=== PATIENT | male | born 1985 | race Caucasian/White ===

== ENCOUNTER 2023-12-06 15:37 | Observation (INO) ==
[2023-12-06 16:56] LABS: Hematocrit (blood only) 46.7 % (42.0-52.0); Hemoglobin 15.5 g/dl (14.0-18.0); Mean Corpuscular Hemoglobin 30.2 pg (25.0-34.0); Mean Corpuscular Hgb Conc 33.2 g/dL (32.0-36.0); Mean Corpuscular Volume 90.9 fL (80.0-100.0); Platelet Count 330 K/uL (130-400); RDW Coefficient of Variation 13.3 % (11.5-14.5); RDW Standard Deviation 44.5 fL (36.4-46.3); Red Blood Count 5.14 M/uL (4.70-6.10); White Blood Count 6.48 K/ul (4.8-10.8)
[2023-12-06 17:01] LABS: iSTAT Creatinine 0.7 mg/dl (0.6-1.3); iSTAT Ionized Calcium 1.22 mmol/l (1.12-1.32); iSTAT Potassium 3.7 mmol/L (3.3-5.0)
--- NOTE | 2023-12-06 17:07 | XRay Report ---
XR chest 1V not portable CLINICAL HISTORY: stroke alert COMPARISON STUDY: Chest radiograph November 18, 2008. FINDINGS: Lung volumes are normal. Lungs are clear. There is no pneumothorax or pleural effusion. Car diac size is normal. Mediastinal contours are normal. There is no evidence for pulmonary edema. IMPRESSION: No acute cardiopulmonary findings. ACT 112: Negative or not required by law. Electronically signed by: Davin Arroyo M.D. 12/06/2023 5:05 PM
[2023-12-06 17:14] LABS: Albumin Globulin Ratio 1.9 (0.9-2); Albumin Level 5.3 gm/dl (3.4-5.0); BUN Creatinine Ratio 9.1 (10-20); Bilirubin,Total 0.7 mg/dl (0.2-1.0); Calcium 9.9 mg/dl (8.6-10.3); Creatinine Clr Calc Pharmacy 156.2 ml/min; Est GFR (African American) 135.3 ml/min; Est GFR (Non-African American) 116.7 ml/min; Globulin 2.8 gm/dl (2.5-4.0); Magnesium 1.9 mg/dl (1.7-2.4); Potassium 3.7 mmol/L (3.5-5.1); Total Protein 8.1 gm/dl (6.0-8.3)
[2023-12-06 17:23] LABS: Partial Thromboplastin Ratio 1.1; Partial Thromboplastin Time 32 Seconds (21-31)
--- NOTE | 2023-12-06 18:10 | CT Scan Report ---
CT OF THE HEAD WITHOUT CONTRAST CLINICAL HISTORY: Neuro deficit, acute, stroke suspected COMPARISON STUDY: Head CT October 08, 2021. MRI of the brain October 29, 2021. CT DOSE: 625.8 mGy.cm TECHNIQUE: Helical axial images of the head were obtained without IV contrast. Automated exposure con trol was utilized for the study. A dose lowering technique was utilized adhering to the principles o f ALARA. FINDINGS: No acute intracranial hemorrhage, midline shift or mass effect is present. The ventricular system is unremarkable. The basal cisterns are patent. No extra-axial collections are present. There are no findings to suggest acute dural sinus thrombosis or acute territorial infarct. There is no estevan varial fracture. Right mastoid effusion is similar to prior CT. IMPRESSION: No acute intracranial findings. ACT 112: Negative or not required by law. Electronically signed by: Davin Arroyo M.D. 12/06/2023 6:09 PM
--- NOTE | 2023-12-06 20:24 | Emergency Department Note ---
Impression & Plan Visual changes ED Provider Note .NAME: FERNY RAMSAY AGE: 38 SEX: M : 1985 ARRIVES VIA: Walk-In INFORMANT: Patient, ED PROVIDER(S): Leelee Mason MD CHIEF COMPLAINT: Left eye HPI: This is a 38-year-old male presenting for left eye abnormality. Patient states that he woke up yesterday and had difficulty with his left eye. He is notes that it looked like it was "pointing outward ". He does have a picture that confirms this. He states that due to this he was having difficulty with his vision. He noted double vision. He went to sleep and noted some improvement with improving symptoms today. He went to the office, dressed who told him to come here for further rule out. At this time he notes no severe neurosymptoms but does have difficulty with moving his eye to the right when he has double vision again. ROS: See above HPI for pertinent positives & negatives. A total of 10 systems reviewed and were otherwise negative. PAST MEDICAL HISTORY: See Below PAST SURGICAL HISTORY: See Below FAMILY HISTORY: See Below SOCIAL HISTORY: See Below HOME MEDICATIONS: See Below ALLERGIES: See Below VITALS: See Below PHYSICAL EXAMINATION: General: resting comfortably in no acute distress Head: Normocephalic and atraumatic Eyes: Normal inspection, extraocular muscles intact Ear, nose, throat: Normal external exam Neck: Normal range of motion Respiratory: lungs clear to auscultation bilaterally Cardiovascular: Regular rate/rhythm, no murmur GI: soft, nontender, no guarding or rebound Extremities: nontender, moves all extremities Neuro: The patient awake and alert, appropriately conversive, no focal deficits, symmetric faces, unable to fully abduct the left eye Skin: Warm, dry, and intact MEDICAL DECISION MAKIN-year-old male presenting for left eye abnormality. Patient has subtle difficulty with medial gaze of the left eye. Concern for internuclear abdominal plegia. Otherwise no concern for meningitis -Screening head CT is negative at this time -Blood work is unrevealing of acute abnormalities -Chest Xray independently interpreted by me showing no pneumothorax, focal opacity, or pleural effusions. -Will admit for further workup with MRI Differential diagnosis: See above ER treatment provided: See below Diagnostics interpreted by me: ECG: ECG independently interpreted by me with normal sinus rhythm, rate of 62, first-degree AV block, normal QRS, normal QTc, no ST segment elevations consistent with STEMI criteria Cardiac Monitoring: An order was placed for continuous cardiac monitoring. The monitor shows a rate of 72 with sinus rhythm. Laboratory studies: As stated above and show below. Imaging studies: See below. 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 Social History Smoking Status: Never smoker Hx Alcohol Use: No Hx Substance Use: No Preferred Language: Zimbabwean Communication Ability: Effective Manager Merchandise Required: No Beliefs That Will Affect Care: None Current Living Situation: Alone Other Information That Helps Us Care for You: No Feels Safe at Home: Yes Safety Concerns: Feels Safe At This Time Assistive Devices: None Allergies Allergies Allergy/AdvReac Type Severity Reaction Status Date / Time Pertussis Vaccines Allergy Unknown Unknown Verified 11/17/23 15:57 Home Meds Home Medications Medication Instructions Recorded Confirmed Turkeytail Mushroom 1 dose PO DIRECTED 11/02/23 12/06/23 acetaminophen 500 mg tablet 1,000 mg PO Q6H PRN PAIN/FEVER 11/02/23 12/06/23 (Tylenol Extra Strength) cholecalciferol (vitamin D3) 25 25 mcg PO DAILY 11/02/23 12/06/23 mcg (1,000 unit) capsule (Vitamin D3) doxylamin 12.5 mg-PSE 10 mg-DM 20 1 packet PO Q4H PRN Cold Symptoms 11/02/23 12/06/23 mg-acetaminophen 650 mg oral pwdr pk ([place] Plus Cold-Flu) lysine 1,000 mg tablet 1,000 mg PO DAILY 11/02/23 12/06/23 Results & Data (ED) Vital Signs Vital Signs - 24 hr 12/06/23 15:55 12/06/23 19:40 12/06/23 21:46 Temperature 36.7 C Temperature Source Oral Pulse Rate 81 Pulse Rate [Right Finger] 81 73 Pulse Rhythm Regular Pulse Strength Normal Respiratory Rate 16 18 18 Respiratory Effort / Characteristics Non-Labored Spontaneous Non-Labored Non-Labored Respiratory Depth Normal Normal Normal Respiratory Pattern Regular Blood Pressure 153/94 H Blood Pressure [Right Arm] 134/88 133/85 Blood Pressure Mean 113 Blood Pressure Mean [Right Arm] 103 101 Blood Pressure Position Sitting Pulse Oximetry 99 99 99 Oxygen Delivery Method Room Air Room Air Room Air Sepsis Recent Fever Within 48 Hours No Sepsis New/Unexplained Change in Mental Status No Sepsis Action Taken by Nursing No Action Required Laboratory Data 12/07/23 02:17 12/07/23 02:17 Lab Results 12/06/23 12/06/23 Range/Units 16:41 16:47 WBC 6.48 (4.8-10.8) K/ul RBC 5.14 (4.70-6.10) M/uL Hgb 15.5 (14.0-18.0) g/dl POC Hgb 16.0 (14.0-18.0) g/dl Hct 46.7 (42.0-52.0) % POC Hct 47 (42-52) % MCV 90.9 (80.0-100.0) fL MCH 30.2 (25.0-34.0) pg MCHC 33.2 (32.0-36.0) g/dL RDW Std Deviation 44.5 (36.4-46.3) fL RDW Coeff of [place] 13.3 (11.5-14.5) % Plt Count 330 (130-400) K/uL MPV 9.0 L (9.4-12.4) fL PT 11.0 (9.0-12.0) Seconds INR 1.0 (0.9-1.1) APTT 32 H (21-31) Seconds PTT Ratio 1.1 POC Sodium 140 (135-144) mmol/L Sodium 139 (136-145) mmol/L POC Potassium 3.7 (3.3-5.0) mmol/L Potassium 3.7 (3.5-5.1) mmol/L POC Chloride 100 L (101-112) mmol/L Chloride 102 (98-107) mmol/L Carbon Dioxide 29 (21-32) mmol/L POC Total CO2 28 (24-31) mmol/L Anion Gap 8 (3-11) POC Anion Gap 17.0 (16-25) mmol/L POC BUN 5 L (7-18) mg/dl BUN 7 (6-23) mg/dl Creatinine 0.77 (0.6-1.4) mg/dl POC Creatinine 0.7 (0.6-1.3) mg/dl Est Cr Clr Drug Dosing 156.2 ml/min Est GFR ( Amer) 135.3 ml/min Est GFR (Non-Af Amer) 116.7 ml/min BUN/Creatinine Ratio 9.1 L (10-20) Glucose 92 (70-99(Fasting)) mg/dl POC Glucose (other) 94 (70-99) mg/dl Calcium 9.9 (8.6-10.3) mg/dl POC Ioniz Calcium Александр 1.22 (1.12-1.32) mmol/l Magnesium 1.9 (1.7-2.4) mg/dl Total Bilirubin 0.7 (0.2-1.0) mg/dl AST 15 (13-39) U/L ALT 11 (7-52) U/L Alkaline Phosphatase 63 (34-104) U/L Total Protein 8.1 (6.0-8.3) gm/dl Albumin 5.3 H (3.4-5.0) gm/dl Globulin 2.8 (2.5-4.0) gm/dl Albumin/Globulin Ratio 1.9 (0.9-2) Lyme Disease IgG Ab Negative (Negative) Lyme Disease IgM Ab Negative (Negative) Administered Medications Discontinued Medications Gadobutrol (Gadobutrol 65ml Vial) 9.5 ml IV ONCE ONE Stop: 12/07/23 00:21 Last Admin: 12/07/23 00:21 Dose: 9.5 ml Documented By: LIV Ioversol (Optiray 320 125ml) 112 ml IV ONCE ONE Stop: 12/07/23 11:33 Last Admin: 12/07/23 11:33 Dose: 112 ml Documented By: BARI Imaging Data Radiologist's Impression: Chest X-Ray 12/06/23 16:05 XR chest 1V not portable CLINICAL HISTORY: stroke alert COMPARISON STUDY: Chest radiograph November 18, 2008. FINDINGS: Lung volumes are normal. Lungs are clear. There is no pneumothorax or pleural effusion. Cardiac size is normal. Mediastinal contours are normal. There is no evidence for pulmonary edema. IMPRESSION: No acute cardiopulmonary findings. ACT 112: Negative or not required by law. Electronically signed by: Davin Arroyo M.D. 12/06/2023 5:[address] 12/06/23 16:05 CT OF THE HEAD WITHOUT CONTRAST CLINICAL HISTORY: Neuro deficit, acute, stroke suspected COMPARISON STUDY: Head CT October 08, 2021. MRI of the brain October 29, 2021. CT DOSE: 625.8 mGy.cm TECHNIQUE: Helical axial images of the head were obtained without IV contrast. Automated exposure control was utilized for the study. A dose lowering technique was utilized adhering to the principles of ALARA. FINDINGS: No acute intracranial hemorrhage, midline shift or mass effect is present. The ventricular system is unremarkable. The basal cisterns are patent. No extra-axial collections are present. There are no findings to suggest acute dural sinus thrombosis or acute territorial infarct. There is no calvarial fracture. Right mastoid effusion is similar to prior CT. IMPRESSION: No acute intracranial findings. ACT 112: Negative or not required by law. Electronically signed by: Davin Arroyo M.D. 12/06/2023 6:09 PM Discharge Plan Visit Data Chief Complaint: Eye Problems Stated Complaint: DOUBLE VISION, REF BY EYE DOCTOR ED Provider: Leelee Mason Discharge Problem: Visual changes Patient Disposition: Admitted As Inpatient Discharge Instructions Interventions: ED Discharge Assessment Last Done: 12/07/23 01:28
--- NOTE | 2023-12-06 22:03 | History & Physical Report ---
Date of Service December 06, 2023 Assessment & Plan (1) Seizure: (2) Anxiety: (3) Visual changes: Plan Left Eye Visual Changes -Concern for decreased lateral movement of left eye, although per patient symptoms improved from yesterday. No other focal neuro deficits on exam. -Differential includes internuclear ophthalmoplegia -CT head WNL, ordered MRI brain w/ w/o -Will obtain tick-borne disease panel in addition, CBC, metabolic panel on admission are reassuring -Will maintain neuro checks overnight -Neurology consulted, appreciate recommendations Admit to med/surg, observation Diet: regular VTE prophylaxis: low risk, early ambulation Code Status: Full code History of Present Illness Primary Care Provider: Feroz Guillermo MD Anthony Monahan is a 38 year old male with PMH of anxiety, substance use, and acute epiglottitis. He was recently discharged from [facility] after treatment for epiglottitis. He presented today due to two days of double vision/vision changes in his left eye. He saw an graduating machine operator today who referred him to the ED for evaluation. He says his symptoms have improved today compared to yesterday, but still notices some issues with moving his left laterally. He states that symptoms seem to resolve when he closes his left eye and only uses his right eye. He does not wear glasses or contacts. He states that this happened previously in 2017 while living in [place], but says it went away quickly so it was not investigated further. He denies headache, chest pain, shortness of breath. ED Course: -CT head -CBC, CMP Allergies Allergy/AdvReac Type Severity Reaction Status Date / Time Pertussis Vaccines Allergy Unknown Unknown Verified 11/17/23 15:57 Home Medications Medication Instructions Recorded Confirmed Type Turkeytail Mushroom 1 dose PO DIRECTED 11/02/23 12/06/23 History acetaminophen 500 mg tablet 1,000 mg PO Q6H PRN PAIN/FEVER 11/02/23 12/06/23 History (Tylenol Extra Strength) cholecalciferol (vitamin D3) 25 25 mcg PO DAILY 11/02/23 12/06/23 History mcg (1,000 unit) capsule (Vitamin D3) lysine 1,000 mg tablet 1,000 mg PO DAILY 11/02/23 12/06/23 History aspirin 81 mg tablet,delayed 81 mg PO QAM #30 tabs 12/07/23 Rx release atorvastatin 40 mg tablet 40 mg PO QAM #30 tabs 12/07/23 Rx 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 Social History Smoking Status: Never smoker Hx Alcohol Use: No Hx Substance Use: No Preferred Language: Tajik Communication Ability: Effective Dermatologist And Dermatopathologist Required: No Beliefs That Will Affect Care: None Current Living Situation: Alone Feels Safe at Home: Yes Assistive Devices: None Review of Systems Review of Systems: As per above Physical Exam Constitutional: WD/WN, vitals as above Eyes: normal visual coker by confrontation, + anicteric sclerae and PERRL; no conjunctival abnormality Left eye limited lateral movement ENMT: Ears: no external ear abnormality Nose: no external nose abnormality Moist mucous membranes Respiratory: normal respiratory effort, lungs clear to auscultation Cardiovascular: Rate/Rhythm: regular rate and regular rhythm Extremities: no edema Gastrointestinal (Abdomen): normal bowel sounds, soft, nontender, no hepatosplenomegaly Musculoskeletal: Moves all extremities Skin: no rashes, warm and dry Neurologic: normal touch/pain/proprioception, moves all extremities and awake Psychiatric: A+Ox3, euthymic affect Results & Data Results & Data Vital Signs (Past 12 Hours) Vital Signs Temp Pulse Pulse Resp BP BP Pulse Ox 12/06/23 21:46 73 18 133/85 99 12/06/23 19:40 81 18 134/88 99 12/06/23 15:55 36.7 C 81 16 153/94 H 99 O2 Del Method 12/06/23 21:46 Room Air 12/06/23 19:40 Room Air 12/06/23 15:55 Room Air Supervising Physician Co-Signing Physician Notes Attending addendum: I have physically seen this patient, have supervised the medical residents activities, and agree with the H&P unless as otherwise noted. Assessment and Plan: Diplopia on left lateral gaze- Differential including neurologic event such as CVA versus decompensated phoria CT scan head without contrast negative MRI brain with and without contrast already ordered and performed with results pending Will either need CTA head and neck or MRA head and neck for further assessment Ordering tickborne panel Neurochecks overnight Consult neurology for further neurologic workup Resident Activity Tracking Resident Involvement: Resident Care Provided Care Provided: Adult Hospital Medicine
[2023-12-07 00:08] LABS: Lyme Ab IgG w/WB Rflx Negative (Negative); Lyme Ab IgM w/WB Rflx Negative (Negative)
[2023-12-07] MEDS: GADOBUTROL 65ML VIAL IV ONE (00:21)
--- NOTE | 2023-12-07 01:27 | Magnetic Resonance Report ---
Exam(s): MRI HEAD W/WO Contrast IV Amt: 9.5cc gadavist EXAM: MR Head Without and With Intravenous Contrast CLINICAL HISTORY: Reason for exam: vision changes. TECHNIQUE: Magnetic resonance images of the head/brain without and with intravenous contrast in multiple planes. CONTRAST: Patient received 9.5cc gadavist of IV contrast COMPARISON: No relevant prior studies available. FINDINGS: Brain: Unremarkable. No mass. No hemorrhage. No acute infarct. Ventricles: Unremarkable. No ventriculomegaly. Bones/joints: Unremarkable. No acute fracture. Sinuses: Unremarkable as visualized. No acute sinusitis. Mastoid air cells: Unremarkable as visualized. No mastoid effusion. Orbits: Unremarkable as visualized. IMPRESSION: Normal head/brain MRI. Electronically signed by: Fransisco Johnson MD 12/07/23 01:26 AM
[2023-12-07] MEDS ORDERED: ACETAMINOPHEN 500 MG TAB PO PRN (01:51)
[2023-12-07] MEDS ORDERED: MELATONIN 3 MG TAB PO PRN (01:51)
[2023-12-07] MEDS ORDERED: POLYETHYLENE (MIRALAX) 17 GM PACK PO PRN (01:51)
[2023-12-07] MEDS ORDERED: ONDANSETRON INJ 2 MG/ML 2 ML VIAL IV PRN (01:51)
[2023-12-07 02:48] LABS: Basophils # (auto) 0.01 K/uL (0.00-0.20); Basophils % (auto) 0.2 %; Eosinophils # (auto) 0.07 K/uL (0.00-0.50); Eosinophils % (auto) 1.1 %; Hematocrit (blood only) 40.9 % (42.0-52.0); Hemoglobin 13.8 g/dl (14.0-18.0); Immature Granulocytes # (auto) 0.02 K/uL (0.01-0.20); Immature Granulocytes % (auto) 0.3 %; Lymphocytes # (auto) 2.85 K/uL (1.20-3.40); Lymphocytes % (auto) 44.6 %; Mean Corpuscular Hemoglobin 30.5 pg (25.0-34.0); Mean Corpuscular Hgb Conc 33.7 g/dL (32.0-36.0); Mean Corpuscular Volume 90.3 fL (80.0-100.0); Mean Platelet Volume 9.3 fL (9.4-12.4); Monocytes # (auto) 0.48 K/uL (0.11-0.59); Monocytes % (auto) 7.5 %; Neutrophils # (auto) 2.96 K/uL (1.40-6.50); Neutrophils % (auto) 46.3 %; Platelet Count 325 K/uL (130-400); RDW Coefficient of Variation 13.4 % (11.5-14.5); RDW Standard Deviation 43.9 fL (36.4-46.3); Red Blood Count 4.53 M/uL (4.70-6.10); White Blood Count 6.39 K/ul (4.8-10.8)
[2023-12-07 03:04] LABS: Albumin Globulin Ratio 1.7 (0.9-2); Albumin Level 4.2 gm/dl (3.4-5.0); BUN Creatinine Ratio 12.9 (10-20); Bilirubin,Total 0.5 mg/dl (0.2-1.0); Creatinine Clr Calc Pharmacy 142.7 ml/min; Est GFR (African American) 129.9 ml/min; Est GFR (Non-African American) 112.1 ml/min; Globulin 2.5 gm/dl (2.5-4.0); Potassium 3.7 mmol/L (3.5-5.1); Total Protein 6.7 gm/dl (6.0-8.3)
--- OUTSIDE RECORDS SUMMARY | 2023-12-07 03:07 | External Medical Summary | Summary of Care ---
Author Name Unknown Organization [facility] Address [address] [place] [address] Phone [phone] Care Team Providers Care Squeezer Operator Name Role Phone Unavailable Primary Care Provider Unavailabl e Reason for Visit * Reason Comments Follow Up Mild sore throat. Fe els as though there is a limp in his throat Encounter Details Date Type Department Care Team (Late st Contact Info) Description 11/22/2023 1:00 PM EST Office Visit Otolaryngology/Head & Neck/Facial Plastic Surgery [address] [place] [address] Ren Ring MD [address] [place] [address] Supraglottitis with airway obstruction* Allergies Active Allergy Reactions Criticality Noted Date Comments Pertussis Vaccine 12/25/2004 documented as of this encounter (statuses as of 11/22/2023) Medications No known medicationsdocumented as of this encounter (statuses as of 11/22/2023) Active Problems Problem Noted Date Diagnosed Date Irritable bowel syndrome 09/14/2007 Panic disorder 02/16/2007 Sebaceous cyst 10/04/2006 ADVANCE DIRECTIVE INFORMATION 01/12/2006 Overview: No, Advance Directive brochure offered , patient declined. Tachycardia 10/12/2005 Other joint derangement, not elsewhere classified, shoulder region 03/09/2005 JOINT PAIN-SHLDER 01/13/2005 Attention deficit hyperactivity disorder (ADHD) 12/25/2004 Overview: ICD-10 update of inactive term Major depressive disorder 12/25/2004 Overview: ICD-10 update of inactive term documented as of this encounter (statuses as of 11/22/2023) Resolved Problems Problem Noted Date Diagnosed Date Resolved Date Supraglottitis without airway obstruction 11/03/2023 11/07/2023 Airway compromise 11/03/2023 11/06/2023 Acute epiglottitis with airway obstruction 11/03/2023 11/06/2023 documented as of this encounter (statuses as of 11/22/2023) Immunizations Name Administration Dates Next Due DT - Diptheria/Tetanus (PEDS) 05/18/1999 ,11/10/1998,10/16/1992,1987 Hepatitis B, 0-19 yrs 10/13/1993,04/01/1993,12/02 MMR - Measles/Mumps/Rubella Vaccine 10/19/1992,0 01/12/1989 OPV - Polio Virus Vaccine (Oral) 997,04/13/1989,05/12/1988,1987 Seasonal Influenza, PF, 6 M & above, IM , (FluLaval or Fluzone) 11/07/2023(Deferred: Patient Refused) TD, Preservative Free 01/10/2009 documented as of this encounter Social History Tobacco Use Types Packs/Day Years Used Date Smoking Tobacco: Former Cigarettes 0.5 5 Q uit: 11/01/2019 Smokeless Tobacco: Former Chew Comments:few Alcohol Use Standard Drinks/Week Comments No 0 (1 standard drink = 0.6 oz pur e alcohol) Sex and Gender Information Value Date Recorded Sex Assigned at Not on file Gender Identity Not on file Sexual Orientation Not on file Job Start Date Occupation Industry Not on file Not on file Not on file documented as of this encounter Progress Notes * Ren Ring MD - 11/22/2023 1:21 PM EST Images from the original note were not included. Otolaryngology - Head & Neck Surgery Visit Date: 11/22/23 Chief Complaint: URI, necrotizing infection of the supraglottis Referred by: Self HPI: Anhtony Monahan is a 38 year old who presented to [facility] with symptoms of pharyngitis on11/03/23. Strep+, with concern for ability to manage secretions and protect airway. CT scan showed edema and possibly early abscess or necrotizing infection at the epiglottis and vallecula. He ultimately underwent urgent intubation in the OR with direct laryngoscopy, biopsy for culture on 11/03/23. Operative findings were as follows: Severe edema of the epiglottis proper, vallecula and adjacent tongue base. Necrotic appearing tissue limited to the right epiglottis and vallecula. Mild edema of the arytenoids. Glottis and subglottis intact/patent. Tissue sent for culture. He was treated inpatient with steroids and antibiotics. OR culture showed MRSA. He is now finished with antibiotic course. His symptoms have greatly improved/resolved. He has been nervous about the infection or symptoms coming back, but has otherwise been doing well. Denies hemoptysis, neck mass, or otalgia. Denies voice change. Denies dysphagia, odynophagia, oral pain, oral/oropharyngeal ulcer, or trismus. Denies new hearing loss, epistaxis, or nasal obstruction. Denies prior malignancy. Former smoker. Past Medical History: Reviewed. Past Surgical History: Reviewed. Family History: Reviewed. Medications and Allergies: Reviewed. Patient Active Problem List Diagnosis Code Attention deficit hyperactivity disorder (ADHD) F90.9 Major depressive disorder F32.9 JOINT PAIN-SHLDER M25.519 Other joint derangement, not elsewhere classified, shoulder region M24.819 Tachycardia R00.0 ADVANCE DIRECTIVE INFORMATION Sebaceous cyst L72.3 Panic disorder F41.0 Irritable bowel syndrome K58.9 Social History Tobacco Use Smoking status: Former Packs/day: 0.50 Years: 5.00 Additional pack years: 0.00 Total pack years: 2.50 Types: Cigarettes Quit date: 11/01/2019 Years since quittin.0 Smokeless tobacco: Former Types: Chew Tobacco comments: few Vaping Use Vaping Use: Every day Substance Use Topics Alcohol use: No Drug use: No Review of Systems: Negative except as documented in HPI, PMH, and Problem List. There were no vitals taken for this visit. Physical Examination: General: Alert, no acute distress. Well developed. Normal mood and affect. Head: Normocephalic, atraumatic. No scalp lesions or masses. Face: No lesions or masses. Facial movement is symmetric without weakness. Eyes: EOMI. Pupils equal. Normal conjunctivae and lids. Ear: Hearing grossly intact. Normal external ears. Nose: No lesions or masses. Normal appearing mucosa. Septum and turbinates are non-obstructing. Oral cavity: No masses or lesions. Normal tongue mobility. Oropharynx: No masses or lesions. No posterior pharyngeal drainage. Palate elevates evenly. Larynx: Normal voice, no hoarseness. Mirror evaluation insufficient due to gag. Neck: No cervical lymphadenopathy. Midline trachea, no crepitus. Respiratory: Normal work of breathing on room air. Procedure: Flexible Laryngoscopy In order to get a better assessment of the upper aerodigestive tract (in setting of follow up severe supraglottitis), fiberoptic examination was performed. Examination was conducted with a flexible endoscope after spraying with 2% lidocaine and oxymetazoline. The scope was inserted in the right nare. The nasal cavities, nasopharynx, orophayrnx, hypopharynx, and larynx were examined. This revealedresolution of infection, no clear masses or lesions. Petroleum epiglottis. Patent airway. Vocal fold motion was full and symmetric. View on direct laryngoscopy (11/03/23): Labs: Culture (11/03/23): MRSA Imaging: CT Neck (11/02/23): Images personally viewed and interpreted. Assessment and Plan: Anthony Monahan is a 38 year old male who presented in respiratory distress with severe supraglottitis and necrosis of the epiglottis. S/p urgent intubation, DL/biopsy and culture on 11/03/23. Recovered well and completed antibiotic treatment. - No evidence of persistent infection or other pathology on exam today. - Asked patient to call back with any red flag signs or symptoms including hemoptysis, neck mass, new or worsening pain, difficulty breathing, dysphagia, weight loss, or other constitutional symptoms. - Follow up PRN. All of the patient's questions were answered. Ren Ring MD Department of Otolaryngology-Head and Neck Surgery Head and Neck Surgical Oncology Microvascular Reconstructive Surgery Transoral Robotic Surgery documented in this encounter Plan of Treatment Health Maintenance Due Date Last Done Comments COVID-19 Vaccine (#1) 03/24/1988 Depression Screening 1999 Influenza Vaccine (FLU shot) (#1) 2023 Diabetes Screening 11/06/2026 11/06/2023, 0 11/05/2023, 11/04/2023, Additional history exists Hepatitis B Completed 10/13/1993, 0611/1992, 12/13/1992 GARDASIL-HPV IMMUNIZATION SERIES Aged Out No longer eligible based on patient's age to complete this topic MENINGOCOCCAL (MENACTRA/MENVEO) Aged Out No longer eligible based on patient's age to complete this topic Pneumococcal Vaccine: Pediatrics (0 to 5 Years) and At-Risk Patients (6 to 64 Years) Aged Out No longer eligible based on patient's age to complete this topic documented as of this encounter Medical Devices Not on filedocumented as of this encounter Visit Diagnoses Diagnosis Supraglottitis with airway obstruction- Primary documented in this encounter Advance Directives Latest Code Status on File Code Status Date Activated Date Inactivated Comments Full Code 11/03/2023 7:46 AM 11/07/2023 12:54 PM This o rder reflects the patients wishes and were consensually agreed upon. Question Answer Comments Discussion of Advance Directives occurred with: Patient
--- NOTE | 2023-12-07 07:48 | Electrocardiogram Report ---
Test Reason : Blood Pressure : / mmHG Vent. Rate : 062 BPM Atrial Rate : 062 BPM P-R Int : 210 ms QRS Dur : 108 ms QT Int : 398 ms P-R-T Axes : 047 -04 046 degrees QTc Int : 403 ms Sinus rhythm with 1st degree A-V block Poor R wave progression, consider anterior FL vs. lead placement vs. LVH Abnormal ECG When compared with ECG of 08-OCT-2021 11:27, No significant change was found Confirmed by Adelfo Lewis ([id number]) on 12/07/2023 7:48:11 AM Referred By: Deanna Ellis Confirmed By:Adelfo Lewis
--- NOTE | 2023-12-07 10:46 | Neurology Consultation ---
Date of Consultation December 07, 2023 Assessment & Plan (1) Left pontine stroke: (2) Diplopia: Plan 38-year-old male presenting with diplopia, and lateral deviation of the left eye, symptoms significantly improved this morning although he continues to report mild diplopia with rightward and right downward gaze. No other associated signs or symptoms such as ptosis, dysarthria, vertigo, or focal weakness. His brain MRI does reveal a likely subacute infarct within the left p osterior pontine tegmentum. A stroke in this location could affect either the fascicles of the C6 nerve or the medial meniscus. In his case, I suspect medial meniscus injury affecting 3rd nerve function. His examination would seem to suggest a left pupil sparing 3rd nerve palsy. Would recommend a CTA of the head and neck. Orders placed. Continue medical management of blood pressure per protocol. Would also recommend acetylcholine receptor antibodies. Orders placed. Would also recommend 30-day mobile cardiac outpatient telemetry. Start aspirin 81 mg/day. Would also check a lipid panel. Check inflammatory markers, ESR, CRP. May follow-up in neurology clinic in 2 to 3 weeks. History of Present Illness Reason for Consultation: vision change Requesting Physician: Amandeep Attending Physician: Sherrie Alex MD History of Present Illness The patient is a 38-year-old male with a chief complaint of diplopia with associated abnormal lateral deviation of the left eye, noted upon awakening yesterday morning. He showed me a picture of his eyes on his cell phone that was taken at that time. The left eye did appear to be laterally deviated, no ptosis. He went back to sleep and awoke later that morning, went to his eye doctor who then referred the patient to the emergency department for further evaluation. The patient denies experiencing other associated symptoms such as change in speech, vertigo, problems of balance or coordination, or focal weakness. He has never had the symptoms before. This morning, his symptoms have resolved. He does endorse a remote history of methamphetamine abuse for about 10 years although indicates that he has not used stimulants for the past 5 years. He does not smoke cigarettes. No headache, fevers or chills. No neck stiffness. A CT of the head completed yesterday was negative for hemorrhage or acute process. A follow-up brain MRI was read as normal. I did independently review these images, and note a subtle area of restricted diffusion within the left pontine tegmentum (image 9 of 24) that could be consistent with a subacute infarct. There is a subtle area of corresponding increased T2 signal in this area as well. These findings were not present on a previous MRI done at [facility] in October 2021 in the context of substance induced seizure. I did review these images with radiology as well, Dr. Arroyo, who is also able to identify the possible subacute appearing stroke within the left pontine tegmentum. Allergies Allergy/AdvReac Type Severity Reaction Status Date / Time Pertussis Vaccines Allergy Unknown Unknown Verified 11/17/23 15:57 Home Medications Medication Instructions Recorded Confirmed Type Turkeytail Mushroom 1 dose PO DIRECTED 11/02/23 12/06/23 History acetaminophen 500 mg tablet 1,000 mg PO Q6H PRN PAIN/FEVER 11/02/23 12/06/23 History (Tylenol Extra Strength) cholecalciferol (vitamin D3) 25 25 mcg PO DAILY 11/02/23 12/06/23 History mcg (1,000 unit) capsule (Vitamin D3) doxylamin 12.5 mg-PSE 10 mg-DM 20 1 packet PO Q4H PRN Cold Symptoms 11/02/23 12/06/23 History mg-acetaminophen 650 mg oral pwdr pk ([place] Plus Cold-Flu) lysine 1,000 mg tablet 1,000 mg PO DAILY 11/02/23 12/06/23 History Patient History Medical History Tinea versicolor Substance abuse oral opiates, inhalation heroin, 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 Social History Smoking Status: Never smoker Hx Alcohol Use: No Hx Substance Use: No Preferred Language: Italian Communication Ability: Effective Security Systems Integrator Required: No Beliefs That Will Affect Care: None Current Living Situation: Alone Other Information That Helps Us Care for You: No Feels Safe at Home: Yes Safety Concerns: Feels Safe At This Time Assistive Devices: None Review of Systems Constitutional: no fever and no chills Eyes: as per Subjective / HPI and + diplopia; no blind spots and no eye pain Ear, Nose, Mouth, Throat: no ear pain, no tinnitus and no hearing loss Respiratory: no cough and no dyspnea Cardiovascular: no chest pain and no palpitations Gastrointestinal: no nausea and no vomiting Genitourinary: no dysuria or no urinary incontinence Musculoskeletal: no back pain and no neck pain Integumentary: no rash and no lesions Neurologic: as per Subjective / HPI; no localized weakness, no loss of sensation, no tremor(s), no seizure-like activity, no headache(s), no abnormal speech, no confusion and no memory loss Psychiatric: no depression and no anxiety Hematologic / Lymphatic: no easy bleeding and no easy bruising Exam (Neuro) Constitutional: well developed and well nourished; no acute distress Eyes: normal visual coker by confrontation, PERRL and EOM intact bilaterally; no nystagmus Neurologic: Oriented to:: Person, Place and Time Memory: Short Term Intact and Remote Intact Attention: Span Intact and Concentration Intact Speech Fluency: negative Dysarthria or Dysfluency Speech Aphasia: negative Aphasia Fund of Knowledge: Current Events, Past History and Vocabulary Cranial Nerves: Normal II, III, IV, , V, VII, VIII, IX, X, XI and XII Motor Strength: Normal Lower Extremities and Normal Upper Extremities Motor Tone: Normal Lower Extremities and Normal Upper Extremities Muscle Bulk/Involuntary Movements: No Involuntary Movements; negative Muscle Atrophy Sensation: Light Touch Intact, Pain/Temperature Intact and Proprioception Intact Coordination: Normal; negative Limited Balance, Dysdiadochokinesia, Finger-Nose Abnormal or Heel-Auguste Abnormal Deep Tendon Reflexes: Rt Triceps: 2+, Lt Triceps: 2+, Rt Biceps: 2+, Lt Biceps: 2+, Rt Brachioradialis: 2+, Lt Brachioradialis: 2+, Rt Patellar: 2+, Lt Patellar: 2+, Rt Ankle: 2+ and Lt Ankle: 2+ Special Tests: negative Babinski Present Gait: Normal Station and Gait Details: Patient does perceive mild horizontal diplopia with rightward gaze, and right downward gaze. Results & Data Vital Signs (Past 12 Hours) Vital Signs Temp Pulse Resp BP Pulse Ox O2 Del Method 12/07/23 07:42 36.5 C 72 18 95/60 L 97 Room Air 12/07/23 01:45 36.6 C 83 16 124/85 97 Room Air Laboratory Results WBC 6.39, hemoglobin 13.8, hematocrit 40.9, platelet count 325, sodium 139, potassium 3.7, BUN 11, creatinine 0.85, glucose 116, calcium 9.0, magnesium 1.9, AST 13, ALT 8 Diagnostic Findings Brain MRI is as described in the HPI, I independently reviewed these images and discussed the findings with radiology as well. Electrocardiogram reveals a sinus rhythm with first-degree AV block, 62 bpm. Coding Level of Care Code 55709 INT INP/OBS CARE 3/75MIN Diagnoses Left pontine stroke I63.9 Diplopia H53.2 Time Spent (min) 80 Comment Total time includes patient contact, chart review, counseling, note preparation
[2023-12-07] MEDS: OPTIRAY 320 125ml IV ONE (11:33)
--- NOTE | 2023-12-07 12:59 | CT Scan Report ---
CT angio head wo/w CLINICAL HISTORY: 38 years-old Male with pontine stroke. Acute strokelike symptoms COMPARISON STUDY: Brain MRI 12/06/2023 TECHNIQUE: Unenhanced axial CT scan of the brain is performed. Subsequently, following the IV adminis tration of 112 cc of Optiray, CT angiogram of the brain was performed from the skull base to the vert ex. Images are reviewed in the axial, sagittal, and coronal planes. 3-D MIPS images are created and a ssessed. IV contrast was administered without complication. All measurements were obtained according to NASCET criteria. A dose lowering technique was utilized adhering to the principles of ALARA. CT DOSE: 1016.39 mGy.cm FINDINGS: CT BRAIN: There is no acute intracranial hemorrhage, midline shift, hydrocephalus, intracranial mass, territori al ischemia or abnormal extra-axial collections. No abnormal intra-axial or extra-axial enhancement. Small right mastoid effusion. No calvarial fracture. Paranasal sinuses are clear. CT ANGIOGRAM OF THE BRAIN: The imaged bilateral internal carotid arteries are patent. The bilateral anterior and middle cerebral arteries are also patent. The vertebrobasilar system and posterior cerebral arteries are widely singh nt. There is no aneurysm, high-grade stenosis, or proximal branch occlusion identified. Dural sinuses appear patent. IMPRESSION: 1. No acute intracranial abnormality identified by CT. 2. Unremarkable CTA. ACT 112: Negative or not required by law. The above report was generated using voice recognition software. It may contain grammatical, syntax o r spelling errors. Electronically signed by: Tobias Torres M.D. 12/07/2023 12:57 PM
--- NOTE | 2023-12-07 13:59 | CT Scan Report ---
CT ANGIOGRAPHY OF THE NECK WITH CONTRAST CLINICAL HISTORY: pontine stroke COMPARISON STUDY: Neck CT November 02, 2023. Technique: CT angiography of the carotid and vertebral arteries was obtained using Optiray and 3D rec onstruction on an independent workstation. NASCET criteria was utilized. Automated exposure control was utilized for the study. A dose lowering technique was utilized adhering to the principles of ALA RA. Findings: The bilateral common carotid, cervical internal carotid and vertebral arteries are patent. No stenosis or dissection within these vessels is present. There is no aneurysm within the neck. No c ervical spine fracture is present. There is no cervical lymphadenopathy. No fluid collections within the neck are present. IMPRESSION: Unremarkable CTA of the neck. ACT 112: Negative or not required by law. Electronically signed by: Davin Arroyo M.D. 12/07/2023 1:56 PM
--- NOTE | 2023-12-07 15:20 | Discharge Summary ---
Discharge Summary Date of Service December 07, 2023 Notes For Next Care Provider Needs 30 day event monitor Needs Neurology follow up in 2-3 weeks Needs ECHO with bubble study as outpatient Medication Changes From Visit Added ASA 81mg po daily, atorvastatin 40mg po daily Admission HPI Per Admitting Provider Anthony Monahan is a 38 year old male with PMH of anxiety, substance use, and acute epiglottitis. He was recently discharged from [facility] after treatment for epiglottitis. He presented today due to two days of double vision/vision changes in his left eye. He saw an branch billing payroll clerk today who referred him to the ED for evaluation. He says his symptoms have improved today compared to yesterday, but still notices some issues with moving his left laterally. He states that symptoms seem to resolve when he closes his left eye and only uses his right eye. He does not wear glasses or contacts. He states that this happened previously in 2017 while living in [place], but says it went away quickly so it was not investigated further. He denies headache, chest pain, shortness of breath. ED Course: -CT head -CBC, CMP Principal Dx & Hospital Course #1 = Principal Diagnosis (1) Left pontine stroke: Pt presented with left eye pupil-sparing 3rd nerve palsy over 24 hours after symptoms started. Symptoms were horizontal diplopia with rightward gaze. No other focal neuro symptoms except some tingling around his upper lip and felt like his upper frontal teeth hurt for a few minutes. CT head negative for acute issues, CTA head and neck negative MRI brain read by Radiology as negative, however Neurology reviewed with Radiology here and found Left subacute posterior pontine tegmentum stroke. This likely caused medial lemniscus (MLF) injury affecting 3rd nerve function as per Neuro. Fortunately his symptoms are already much improved before discharge. His right lateral gaze diplopia on discharge but overall much improved Lipids and HgbA1C good, nonsmoker, BPs normal (no h/o HTN). Does have prior methamphetamine use but none in several years. Lyme/Anaplasmosis,/Babesiosis titer/smears negative He did have a recent ICU stay (at [facility]) one month ago for epiglottitis and was intubated, with Strep and MRSA infection of the throat- treated and completely recovered. Unsure if this would be related? ESR and CRP normal and CTA no evidence of vasculitis Neuro recommended ACH receptor antibodies which were drawn and pending at time of discharge Unfortunately, he was not admitted to a telemetry monitored bed on admission and no tele noted but ECG on admission with SR with 1st degree AV block, exmaines in regular rhythm, no murmur or fever to suggest endocarditis. pt declines to wait for ECHO with bubble study to be done in the hospital and prefers to have this done as an outpatient with PCP. Will also arrange 30 day cardiac event monitor for occult afib/flutter started ASA, statin f/u Neuro in 2-3 weeks recommended (2) Diplopia: as above, improving, 2/2 CVA Plan Dispo-dc to home Discharge Exam Constitutional WD/WN, vitals as above Eyes normal visual coker by confrontation, PERRL and EOM intact bilaterally (with horizontal diplopia mild with right lateral gaze); eyes not dysmorphic, no eyelid abnormality, no scleral abnormality, no anisocoria and no nystagmus ENMT external ear and nose normal, oropharynx normal Respiratory normal respiratory effort, lungs clear to auscultation Cardiovascular RRR, no murmur, no edema Musculoskeletal no cyanosis or clubbing, extremities motor strength 5/5 Neurologic PERRL, EOMI, accommodation nl, no face palsy, no dysarthria moves all extremities Psychiatric A+Ox3, euthymic affect Updated Medication List Medication Instructions Recorded Confirmed Type Turkeytail Mushroom 1 dose PO DIRECTED 11/02/23 12/08/23 History acetaminophen 500 mg tablet 1,000 mg PO Q6H PRN PAIN/FEVER 11/02/23 12/08/23 History (Tylenol Extra Strength) cholecalciferol (vitamin D3) 25 25 mcg PO DAILY 11/02/23 12/08/23 History mcg (1,000 unit) capsule (Vitamin D3) lysine 1,000 mg tablet 1,000 mg PO DAILY 11/02/23 12/08/23 History aspirin 81 mg tablet,delayed 81 mg PO QAM #30 tabs 12/07/23 12/08/23 Rx release atorvastatin 40 mg tablet 40 mg PO QAM #30 tabs 12/07/23 12/08/23 Rx Hospital Stay Data Consultations 12/07/23 01:51 Consult Neurology Routine 12/07/23 14:42 Consult [facility] roller repairer Routine Diagnostic Imagining Performed 12/06/23 16:05 CT head/brain wo con Stat 12/07/23 00:10 MR brain wo/w con Urgent 12/07/23 10:41 CT angio head wo/w Routine 12/07/23 10:42 CT angio neck with con Routine Pending Results Patient Have Any Pending Studies at Discharge: Yes (Ach receptor antibodies,ESR,CRP,lipids,HgbA1C) Discharge Instructions Given to Patient (Per Discharging Provider) Please continue on the aspirin and atorvastatin you were started on for your stroke. A 30 day heart monitor will be arranged for you to wear as an outpatient to look for abnormal heart rhythms that can cause strokes. There are some blood tests that are pending at the time of discharge that can be followed up by the Neurologist and/or your PCP. You will also need to get an Echocardiogram with a "bubble study" which you preferred to have done as an outpatient-Dr. Guillermo can order this for you. Risk Factors for Stroke: You can reduce your chances of stroke by working with your medical provider to adopt a healthy lifestyle. Some specific ways to lower your chance of stroke are: * If you are a smoker, now is the time to stop smoking cigarettes * If you are diabetic, improve the control of your blood sugars * Avoid excessive amounts of alcohol * Control high blood pressure * Lose weight if you are overweight * Be sure to lead an active lifestyle * Eat a healthy diet low in salt, cholesterol and fat You should know about other risk factors for stroke that you are unable to control. These include: * Age 55 years or older * Male gender * Certain racial groups: , or / * Family History of Stroke, Mini stroke or Heart Attack * Sickle Cell Disease Follow Up: It is important for you to keep your follow up appointments with your medical provider. Who to Call and When: Medical Emergencies: Call 911 immediately if you experience any of the following warning signs and symptoms of Stroke: * Sudden numbness or weakness of the face, arm or leg, especially on one side of the body * Sudden confusion, trouble speaking or understanding * Sudden trouble seeing in one or both eyes * Sudden trouble walking, dizziness, loss of balance or coordination * Sudden severe headache with no cause Do not delay calling 911 if you experience any warning signs or symptoms of a stroke. Delay in seeking medical attention may affect what treatments can be given to you. . Total Time Total Time Spent Total Time Spent (In Minutes): 45 min Total Time Includes: Examination of the Patient, Discharge Planning, Medication Reconciliation, Communication With Other Providers and Other (mattress spring encaser) Coding Level of Care Code 93069 INP/OBS DISCH >30 MIN Diagnoses Left pontine stroke I63.9 Diplopia H53.2
[2023-12-07 15:43] LABS: C Reactive Protein < 0.50 mg/dl (0-0.5); Chol HDL Ratio 3.7 (0-5); Cholesterol 194 mg/dl (0-200); HDL Cholesterol 53 mg/dl; LDL Cholesterol Calculated 123 mg/dl; Triglycerides 90 mg/dl (0-150); VLDL Cholesterol 18 mg/dl (0-30)
[2023-12-07] MEDS: ASPIRIN 81 MG ECTAB PO SCH (15:44)
[2023-12-07 16:00] LABS: Estimated Average Glucose 111 mg/dl; Hemoglobin A1C 5.5 % (4.5-5.6)
--- NOTE | 2023-12-07 21:51 | Billing Data ---
Date of Service December 07, 2023 Coding Level of Care Code 86509 INT INP/OBS CARE
[2023-12-08] MEDS ORDERED: ATORVASTATIN 40 MG TAB PO SCH (09:00)
[2023-12-10 16:09] LABS: Ehrlichia chaff DNA Bld Negative (Negative)
== END 2023-12-07 16:42 | disposition home or self-care (01) ==
LOC: 3E 15:37 → ED 15:37 → SUATTDRO 23:02 → 3E 12-07 01:28